=== PATIENT | female | born 1955 | race Caucasian/White ===

== ENCOUNTER 2016-06-23 15:38 | Emergency (ER) | payer MEDICARE | END 2016-06-23 17:30 | disposition home or self-care (01) | LOC: D.ER 15:38 | DX: M54.5 Low back pain (principal); S39.012A Strain of muscle, fascia and tendon of lower back, initial encounter; X58.XXXA Exposure to other specified factors, initial encounter; Y93.89 Activity, other specified; Y92.89 Other specified places as the place of occurrence of the external cause; M62.830 Muscle spasm of back; M53.3 Sacrococcygeal disorders, not elsewhere classified; F41.9 Anxiety disorder, unspecified; M79.7 Fibromyalgia ==

== ENCOUNTER 2017-08-15 13:58 | Emergency (ER) | payer MEDICARE ==
[2017-08-15 14:52] LABS: BASOPHILS 0.3 % (0-2); EOSINOPHILS 3.9 % (0-7); HEMATOCRIT 33.5 % (36.0-48.0); HEMOGLOBIN 10.9 g/dL (12-16); IMMATURE GRANULOCYTES 0.2 % (0-5); LYMPHOCYTES 28.9 % (15-50); MCH 28.9 pg (26.0-34.0); MCHC 32.5 g/dL (31.0-37.0); MCV 88.9 fL (80.0-100.0); MONOCYTES 10.7 % (2-11); PLATELET COUNT 284 10x3/uL (130-400); RBC 3.77 10x6/uL (4.00-5.40); WBC 10.2 10x3/uL (4.8-10.8)
[2017-08-22 16:10] LABS: AEROBE ID Final report (())
== END 2017-08-15 18:45 | disposition home or self-care (01) ==
LOC: D.ER 13:58
PROVIDERS: Emergency Medicine
DX: L02.612 Cutaneous abscess of left foot (principal)

== ENCOUNTER 2018-07-21 21:30 | Emergency (ER) | payer MEDICARE ==
[~2018-07-21] VITALS: Ht 149.9 cm; Wt 47.7 kg
[2018-07-21 21:47] VITALS: Ht 149.9 cm; Wt 47.7 kg
[2018-07-21] MEDS ORDERED: DICLOFENAC SODI50 MG PO (21:50)
[2018-07-21] MEDS ORDERED: NEURONTIN 400400 MG PO (21:50)
[2018-07-21] MEDS ORDERED: ZANAFLEX4 MG PO (21:51)
[2018-07-21] MEDS ORDERED: STERAPRED DS 1210 MG PO (21:51)
[2018-07-22 02:31] VITALS: BP 127/70
== END 2018-07-22 02:31 | disposition home or self-care (01) ==
LOC: D.ER 21:30
DX: S70.01XA Contusion of right hip, initial encounter (principal); M54.16 Radiculopathy, lumbar region; W19.XXXA Unspecified fall, initial encounter